=== PATIENT | male | born 1980 | race African-American/Black ===

== ENCOUNTER 2020-10-08 22:06 | Emergency (ER) | payer SELFPAY ==
[2020-10-08 22:21] VITALS: BP 135/84; PULSE 98; TEMP 97.9; BMI 31.9
[2020-10-08] MEDS ORDERED: ACETAMINOPHEN 325 MG TABLET (FP) PO ONE (23:16)
[2020-10-08] MEDS ORDERED: ACETAMINOPHEN 325 MG TABLET (FP) ONE (23:19)
== END 2020-10-08 23:27 | disposition home or self-care (01) ==
LOC: JER 22:06
DX: K13.79 Other lesions of oral mucosa (principal)
CPT/HCPCS: 99283-25